=== PATIENT | female | born 1955 | race Caucasian/White ===

== ENCOUNTER 2016-05-10 08:00 | Day surgery (SDC) | payer MEDICARE, BC ==
[2016-05-10] MEDS ORDERED: PROPOFOL 10 MG/ML VIAL IV ONE (14:00)
[2016-05-10] MEDS ORDERED: LIDOCAINE 2% MDV (20MG/ML) 20ML VIAL IV ONE (14:00)
[2016-05-10] MEDS ORDERED: MIDAZOLAM HCL 2MG/2ML VIAL IV ONE (14:00)
--- NOTE | 2016-05-14 09:50 | Operative Note ---
DATE OF SURGERY: 05/10/2016 REFERRING: Pancho Chowdhury M.D. PREOPERATIVE DIAGNOSES: 1. Increased risk. 2. Family history of colon cancer in mother. POSTOPERATIVE DIAGNOSIS: Normal exam. PROCEDURE: Screening COLONOSOCPY. Surgeon: Armando Matt D.O. PREPARATION QUALITY: Good. Estimated Blood Loss: None. COMPLICATIONS: None. SPECIMENS: None. PROCEDURE: After informed consent was obtained from the patient, she was placed in left lateral decubitus position in the Endoscopy Suite, sedated and monitored by Department of Anesthesia. Digital rectal examination was unremarkable. A well-lubricated PCF-180 colonoscope was inserted into the rectum and advanced to the cecum. Transabdominal pressure was necessary to intubate the cecal cap. The preparation quality was good. The appendiceal orifice, the ileocecal valve, cecum, ascending colon, transverse colon, descending colon, sigmoid colon and rectum were carefully inspected. No polyps, mass lesions or inflammation were seen. Forward and J-turn views of the rectum and anorectum were unremarkable. The endoscope was straightened, the rectal ampulla was deflated and the endoscope was removed. RECOMMENDATIONS: The patient should resume her medications and diet. Based on her family history I would recommend a repeat exam in 5 years. As always, thank you for allowing me to participate in the care of your patient. Armando Matt DO CC: Pancho Chowdhury M.D. MTDD
== END 2016-05-10 08:52 | disposition home or self-care (01) ==
LOC: HOP 08:00
PROVIDERS: ATTEND Internal Medicine Gastroenterology
DX: Z12.11 Encounter for screening for malignant neoplasm of colon (principal); Z80.0 Family history of malignant neoplasm of digestive organs; I10 Essential (primary) hypertension; E11.9 Type 2 diabetes mellitus without complications; Z79.84 Long term (current) use of oral hypoglycemic drugs; E78.00 Pure hypercholesterolemia, unspecified; M79.7 Fibromyalgia
CPT/HCPCS: 00810; G0105